=== PATIENT | male | born 1990 | race Hispanic/Latino ===

== ENCOUNTER 2017-11-17 07:59 | Emergency (ER) | payer SELFPAY | END 2017-11-17 08:58 | disposition home or self-care (01) | LOC: EDH 07:59 | DX: B02.9 Zoster without complications (principal); Z72.0 Tobacco use ==

== ENCOUNTER 2017-12-14 15:41 | Emergency (ER) | payer SELFPAY | END 2017-12-14 16:20 | disposition home or self-care (01) | LOC: EDH 15:41 | DX: M25.532 Pain in left wrist (principal); Z72.0 Tobacco use | CPT/HCPCS: 99281 ==